=== PATIENT | female | born 1985 | race Caucasian/White ===

== ENCOUNTER → 2024-07-08 | Day surgery (SDC) | payer OTHER ==
[~2024-07-08] MED LIST: LIDOCAINE HCL 2% LOCAL INJ 5 ML SDV VIAL INJ ONE; PROPOFOL IV EMULSION 10 MG/ML 20 ML VIAL ONE; XOPENEX INH; ZOLOFT50 MG PO
[2024-07-08] MEDS: LACTATED RINGER'S 1,000 ML ONE (09:28)
[2024-07-08 11:35] VITALS: BP 107/62; PULSE 72; RESP 16; O2SAT 100
== END | disposition home or self-care (01) ==
LOC: OR 08:48
PROVIDERS: ATTEND Internal Medicine Gastroenterology
DX: K25.3 Acute gastric ulcer without hemorrhage or perforation (principal); D12.3 Benign neoplasm of transverse colon; K29.50 Unspecified chronic gastritis without bleeding; B96.81 Helicobacter pylori [H. pylori] as the cause of diseases classified elsewhere; K31.A0 Gastric intestinal metaplasia, unspecified; K22.89 Other specified disease of esophagus; K44.9 Diaphragmatic hernia without obstruction or gangrene; K64.8 Other hemorrhoids; I95.1 Orthostatic hypotension; J45.909 Unspecified asthma, uncomplicated; F41.9 Anxiety disorder, unspecified; Z79.899 Other long term (current) drug therapy
CPT/HCPCS: 43239; 45380; 45385; 81025; 88305; 88342; J2003; J2704; J7121